=== PATIENT | male | born 1970 | race Caucasian/White ===

== ENCOUNTER 2020-01-08 01:04 | Outpatient (CLI) | payer BC, SELFPAY ==
[2020-01-08 16:42] LABS: SARS-CoV-2 RNA PCR Negative
== END 2020-01-08 01:05 | disposition home or self-care (01) ==
LOC: ANHCOVIDDT 01:05
PROVIDERS: PCP Family Medicine; Visit Provider Internal Medicine Gastroenterology
DX: Z01.812 Encounter for preprocedural laboratory examination (principal); Z20.828 Contact with and (suspected) exposure to other viral communicable diseases
CPT/HCPCS: 87635; C9803; U0003

== ENCOUNTER 2020-01-11 00:59 | Day surgery (SDC) | payer BC, SELFPAY ==
[2019-10-14 08:32] VITALS: BMI 33.5
[2020-01-05 09:58] VITALS: BMI 34.2
--- NOTE | 2020-01-11 00:05 | WPDANESEPP ---
Anes - Eval Pre Procedure Procedure: Operation Date: 01/11/20 07:30 Proposed Procedures p Screening Colonoscopy - Pawel Wood MD Date/Time: 01/11/20 00:05 Pre Op Diagnosis: Neoplasm screening Patient Data Age: 49 Gender: M Height: 5 ft 8 in Weight: 102 kg Allergies Allergy/AdvReac Type Severity Reaction Status Date / Time Penicillins Allergy Unknown childhood Verified 01/05/20 09:49 allergy Home Medications Medication Instructions Recorded Confirmed Type citalopram 20 mg tablet 20 mg PO HS 06/17/19 10/14/19 History sildenafil 100 mg tablet 100 mg PO DAILY PRN #30 tablet 08/02/19 10/14/19 Rx lisinopril-hydrochlorothiazide 1 tablet PO QAM 10/14/19 01/05/20 History atorvastatin 10 mg tablet 10 mg PO HS #90 tablet 10/26/19 01/05/20 Rx Patient hx anesthesia problems: none Family hx anesthesia problems: none PMFSH Past Medical History Medical History Benign essential hypertension Major depressive disorder, recurrent, moderate Male erectile disorder Mixed hyperlipidemia Obesity, unspecified Vitamin D deficiency, unspecified Family History Family History Mother Family history of malignant neoplasm of breast in first degree relative, Onset Age: 46 Social History Social History Smoking status: Never smoker Alcohol intake: current Exam Day of Procedure 01/11/20 00:05 Patient weight: overweight
[2020-01-11] MEDS: LACTATED RINGERS 1,000 ML 150 ML IV CONT (06:36)
[2020-01-11 06:41] VITALS: BP 133/89; PULSE 51; RESP 16; TEMP 36.3; O2SAT 99
--- NOTE | 2020-01-11 06:56 | P.PNAN_ITS ---
Anes - Eval Final PreProcedure Day of Procedure 01/11/20 06:56 Patient weight: obese Heart: regular rate and rhythm Lungs: clear to auscultation Airway: Mallampati scale class II Neurological: alert and oriented Last oral intake: >/= 8 hours ASA classification: II Emergent: no Anesthetic plan: proceed Anesthesia type and monitoring: general GIVS and standard monitoring Informed Consent: The patient's anesthetic plan and its attendant risks and be nefits were discussed with the patient/family/POA. Questions were solicited and answers provided to the satisfaction of the patient/family/POA.
--- NOTE | 2020-01-11 07:54 | P.CONGI_ITS ---
Assessment and Plan Assessment and plan (1) Encounter for screening for colorectal malignant neoplasm: Code(s): Z12.11 - Encounter for screening for malignant neoplasm of colon; Z12.12 - Encounter for screening for malignant neoplasm of rectum Status: Acute Assessment and Plan: Patient has never had a colonoscopy PD with 4 plan is for screening colonoscopy today. Further recommendations after endoscopy. GI Consult Note Consult date/time: 01/11/20 07:54 HPI: Frantz Blanca is a 49 year old male Seen in evaluation at the request of Dr. Mamadou Parkinson. patient presents for neoplasia screening colonoscopy. His current weight appetite bowel movements are normal. He denies abdominal pain. He has no blood in his stools. His family history is noncontributory. Review of Systems Review of Systems: All systems reviewed & are unremarkable except as noted in HPI and below PMFSH Past Medical History Medical History Benign essential hypertension Major depressive disorder, recurrent, moderate Male erectile disorder Mixed hyperlipidemia Obesity, unspecified Vitamin D deficiency, unspecified Family History Family History Mother Family history of malignant neoplasm of breast in first degree relative, Onset Age: 46 Social History Social History Smoking status: Never smoker Alcohol intake: current Meds Home Medications and Allergies Home Medications Medication Instructions Recorded Confirmed Type citalopram 20 mg tablet 20 mg PO HS 06/17/19 01/11/20 History sildenafil 100 mg tablet 100 mg PO DAILY PRN #30 tablet 08/02/19 10/14/19 Rx lisinopril-hydrochlorothiazide 1 tablet PO QAM 10/14/19 01/05/20 History atorvastatin 10 mg tablet 10 mg PO HS #90 tablet 10/26/19 01/05/20 Rx Allergies Allergy/AdvReac Type Severity Reaction Status Date / Time Penicillins Allergy Unknown childhood Verified 01/11/20 06:26 allergy Vital Signs Vital Signs - 24 hr 01/11/20 06:41 Temperature 36.3 C L Pulse Rate 51 L Respiratory Rate 16 Blood Pressure 133/89 Pulse Oximetry 99 Exam Narrative: Exam Narrative: Physical exam reveals patient to be alert. Vital signs stable. HEENT exam unremarkable. Lungs are clear to auscultation and percussion. Heart is without murmur or extra sounds. Abdominal exam bowel justin nds are present soft nontender with no hepatosplenomegaly. Digital external rectal exam unremarkable.
[2020-01-11 07:56] VITALS: BP 102/67; PULSE 63; RESP 16; O2SAT 97
[2020-01-11 08:06] VITALS: BP 101/66; PULSE 60; RESP 15; O2SAT 97
[2020-01-11 08:16] VITALS: BP 108/74; PULSE 63; RESP 17; O2SAT 99
== END 2020-01-11 08:45 | disposition home or self-care (01) ==
PROVIDERS: PCP Family Medicine; Visit Provider Internal Medicine Gastroenterology
PROC: 0DJD8ZZ Inspection of Lower Intestinal Tract, Via Natural or Artificial Opening Endoscopic (ICD-10-PCS; CPT 45378; principal; 2020-01-11 07:30)
DX: Z12.11 Encounter for screening for malignant neoplasm of colon (principal); D12.5 Benign neoplasm of sigmoid colon; K63.5 Polyp of colon; K57.30 Diverticulosis of large intestine without perforation or abscess without bleeding; K64.8 Other hemorrhoids; I10 Essential (primary) hypertension; E78.2 Mixed hyperlipidemia; E55.9 Vitamin D deficiency, unspecified; F33.1 Major depressive disorder, recurrent, moderate; E66.9 Obesity, unspecified; Z68.37 Body mass index [BMI] 37.0-37.9, adult
CPT/HCPCS: 45385; 88305; J2704; J7120

== ENCOUNTER 2020-08-07 15:12 | Emergency (ER) | payer BC, SELFPAY ==
--- NOTE | ~2020-08-07 | XR_ITS ---
EXAMINATION: XR chest 1V DATE: 08/07/2020 16:42 INDICATION: Shortness of breath and cough. COVID-19 positive on 07/27/20. TECHNIQUE: A single frontal view of the chest was obtained. COMPARISON: CT abdomen and pelvis 10/25/2015 FINDINGS: There are patchy airspace opacities in the mid and lower lung zones. No pleural effusion or pneumothorax. The heart size is normal. IMPRESSION: 1. Patchy airspace opacities in the mid and lower lung zones, consistent with COVID-19 pneumonia. Reviewed, dictated and finalized at location A. [facility] IMPRESSION: 1. Patchy airspace opacities in the mid and lower lung zones, consistent with C OVID-19 pneumonia.
[2020-08-07 16:26] VITALS: BP 124/73; PULSE 78; RESP 14; TEMP 36; O2SAT 97
--- NOTE | 2020-08-07 16:28 | ECG_ITS ---
Measurements Intervals [place] Rate: 76 P: 57 MO: 155 QRS: 39 QRSD: 92 T: 30 QT: 361 QTc: 408 Interpretive Statements SINUS RHYTHM INCOMPLETE RIGHT BUNDLE BRANCH BLOCK BORDERLINE ECG Electronically Signed On 08-07-2020 17:26:35 PATIENT CARE ASSISTANT by Leonard Dempsey D.O.
[2020-08-07 16:43] LABS: Basophils Percent Auto 0.1 % (0.2-1.2); Hematocrit 44.1 % (42.0-52.0); Hemoglobin 15.3 g/dL (14.0-18.0); Immature Granulocyte Absolute 0.05 K/mm3 (0.00-0.031); Immature Granulocyte Percent A 0.5 % (0-0.5); Lymphocytes Absolute Auto 1.35 K/mm3 (0.9-3.2); Lymphocytes Percent Auto 13.7 % (18.3-44.2); Mean Corpuscular HGB Conc 34.7 g/dl (32-36); Mean Corpuscular Hemoglobin 29.9 pg (26-34); Mean Corpuscular Volume 86.1 fl (80-100); Mean Platelet Volume 9.1 fl (7.4-10.4); Monocytes Absolute Auto 0.7 K/mm3 (0.1-0.6); Monocytes Percent Auto 6.7 % (2.6-8.5); Neutrophils Absolute Auto 7.8 K/mm3 (1.3-6.7); Platelet Count Result 224 k/mm3 (150-375); Red Blood Count 5.12 M/mm3 (4.6-6.20); Red Cell Distribution Width 11.8 % (11.5-14.5); White Blood Count 9.9 K/mm3 (4.5-10.0)
[2020-08-07 16:49] VITALS: PULSE 79
[2020-08-07 16:52] LABS: Anion Gap 8 mmol/L (8-16); Blood Urea Nitrogen 14 mg/dL (9-20); Calcium 8.5 mg/dL (8.4-10.2); Carbon Dioxide 26 mmol/L (22-30); Chloride 103 mmol/L (98-107); Estimated CRCL calculation 116 ml/min; Estimated Glomerular Filt Rate > 60; Glucose 146 mg/dL (75-110); Potassium 3.4 mmol/L (3.4-5.0); Sodium 137 mmol/L (137-145)
[2020-08-07 17:14] VITALS: PULSE 83; RESP 24; O2SAT 95
[2020-08-07 17:15] VITALS: PULSE 81; RESP 24; O2SAT 88
[2020-08-07 17:16] VITALS: BP 115/79; PULSE 82; RESP 15; O2SAT 97
--- NOTE | 2020-08-07 17:58 | ED.GENADULT ---
HPI - General Adult General Chief complaint: Shortness of Breath/Dyspnea Stated complaint: covid positive/low pulse ox Time Seen by Provider: 08/07/20 16:57 Source: patient Mode of arrival: ambulatory Limitations: no limitations History of Present Illness HPI narrative: Patient is a 50-year-old male who presents to emergency department for evaluation of shortness of breath patient has been experiencing COVID-19 symptoms with positive test since the beginning of the year patient notes that he was improving but today he had an episode of shortness of breath patient has been watching his oxygen at home which has gotten as low as 92 patient on arrival denying any pain feeling much better resting in the room Related Data Allergies Allergy/AdvReac Type Severity Reaction Status Date / Time Penicillins Allergy Unknown childhood Verified 08/07/20 16:48 allergy Review of Systems Review of Systems: All systems reviewed & are unremarkable except as noted in HPI and below PMFSH Past Medical History Medical History (Updated 08/07/20 @ 18:05 by Shin Cruz PA-C) Benign essential hypertension Major depressive disorder, recurrent, moderate Male erectile disorder Mixed hyperlipidemia Obesity, unspecified Vitamin D deficiency, unspecified Family History Family History Mother Family history of malignant neoplasm of breast in first degree relative, Onset Age: 46 Social History Social History Smoking status: Never smoker Alcohol intake: current Exam Narrative: Exam Narrative: GENERAL: Well-appearing, well-nourished, and in no acute distress. HEAD: Normocephalic, atraumatic. EYES: PERRLA and EOMI. ENT: Nares clear, no rhinorrhea or epistaxis. Mucous membranes moist. CHEST: Clear to auscultation. No respiratory distress. Slight crackles in the lung field HEART: Regular rate and rhythm. No murmur heard. Normal peripheral pulses. EXTREMITIES: Normal range of motion. No edema. SKIN: Warm, dry, no rash. NEURO: No focal deficits. Alert and oriented x3. PSYCH: Normal mood and affect. Course Course Emergency Course: Patient in the room with COVID-19 no hypoxemia does have COVID-19 pneumonia will be managed symptomatically as an outpatient given medications and advised to continue to watch his oxygenation ABCs and vital signs intact and stable Vital Signs Vital signs: Vital Signs Temperature 96.8 F L 08/07/20 16:26 Pulse Rate 78 08/07/20 16:26 Respiratory Rate 14 08/07/20 16:26 Blood Pressure 124/73 08/07/20 16:26 Pulse Oximetry 97 08/07/20 16:26 Temperature 96.8 F L 08/07/20 16:26 Pulse Rate 82 08/07/20 17:16 Respiratory Rate 15 08/07/20 17:16 Blood Pressure 115/79 08/07/20 17:16 Pulse Oximetry 97 08/07/20 17:16 Medical Decision Making MDM Narrative Medical decision making narrative: Patient with viral pneumonia secondary to COVID-19 hemodynamically stable no distress Vital Signs Vital Signs: Vital Signs Temperature 96.8 F L 08/07/20 16:26 Pulse Rate 78 08/07/20 16:26 Respiratory Rate 14 08/07/20 16:26 Blood Pressure 124/73 08/07/20 16:26 Pulse Oximetry 97 08/07/20 16:26 Temperature 96.8 F L 08/07/20 16:26 Pulse Rate 82 08/07/20 17:16 Respiratory Rate 15 08/07/20 17:16 Blood Pressure 115/79 08/07/20 17:16 Pulse Oximetry 97 08/07/20 17:16 Lab Data Result diagrams: 08/07/20 16:30 08/07/20 16:30 Labs: Lab Results 08/07/20 08/07/20 Range/Units 16:30 16:30 WBC 9.9 (4.5-10.0) K/mm3 RBC 5.12 (4.6-6.20) M/mm3 Hgb 15.3 (14.0-18.0) g/dL Hct 44.1 (42.0-52.0) % MCV 86.1 (80-100) fl MCH 29.9 (26-34) pg MCHC 34.7 (32-36) g/dl RDW 11.8 (11.5-14.5) % Plt Count 224 (150-375) k/mm3 MPV 9.1 (7.4-10.4) fl Immature Gran % (Auto) 0.5 (0-0.5) % Neut %
[2020-08-07] MEDS: DEXAMETHASONE SOD PHOS INJ 4 MG/ML VIAL 6 MG IV PUSH (18:13)
[2020-08-07 18:24] VITALS: BP 116/85; PULSE 79; RESP 20; O2SAT 97
== END 2020-08-07 18:25 | disposition home or self-care (01) ==
PROVIDERS: Emergency Provider Emergency Medicine; PCP Family Medicine
DX: U07.1 COVID-19 (principal); J12.82 Pneumonia due to coronavirus disease 2019; I10 Essential (primary) hypertension; E78.2 Mixed hyperlipidemia; E55.9 Vitamin D deficiency, unspecified; E66.9 Obesity, unspecified; Z68.36 Body mass index [BMI] 36.0-36.9, adult
CPT/HCPCS: 36415; 71045; 80048; 85025; 93005; 96374; 99284; J1100

== ENCOUNTER 2021-02-01 15:50 | Outpatient (CLI) | payer BC, SELFPAY ==
--- NOTE | ~2021-02-01 | XR_ITS ---
EXAMINATION: XR chest 2V DATE: 02/01/2021 16:05 INDICATION: Shortness of breath. TECHNIQUE: Frontal and lateral views of the chest were obtained. COMPARISON: Chest single view 08/07/2020, CT abdomen and pelvis 10/25/2015 FINDINGS: The lung volumes are small. There is no pneumonia, pleural effusion, or pneumothorax. The h eart size is normal. IMPRESSION: 1. No acute cardiopulmonary disease. Reviewed, dictated and finalized at location A.
== END 2021-02-01 15:51 | disposition home or self-care (01) ==
LOC: ANHIMG 15:54
PROVIDERS: PCP Family Medicine; Visit Provider Physician Assistant
DX: R06.02 Shortness of breath (principal)
CPT/HCPCS: 71046

== ENCOUNTER → 2021-04-12 00:15 | Outpatient (CLI) | payer BC, SELFPAY ==
[2021-04-12 19:52] LABS: SARS-CoV-2 RNA PCR Negative
== END ==
PROVIDERS: PCP Family Medicine; Visit Provider Physician Assistant Medical
DX: Z20.822 Contact with and (suspected) exposure to COVID-19 (principal); J02.9 Acute pharyngitis, unspecified; R09.81 Nasal congestion; R09.89 Other specified symptoms and signs involving the circulatory and respiratory systems
CPT/HCPCS: C9803; U0003; U0005

== ENCOUNTER 2022-04-11 18:56 | Emergency (ER) | payer BC, SELFPAY ==
[2022-04-11 19:26] VITALS: BP 121/83; PULSE 94; RESP 18; TEMP 36.8; O2SAT 96
--- NOTE | 2022-04-11 21:57 | PC.NURSE ---
LWBS TRIAGED, LEFT D/T WAIT TIME
== END 2022-04-11 21:57 | disposition left against medical advice (07) ==
PROVIDERS: PCP Family Medicine
DX: M54.50 Low back pain, unspecified (principal)
CPT/HCPCS: 99199

== ENCOUNTER → 2022-04-12 11:35 | Outpatient (CLI) | payer BC, SELFPAY ==
--- NOTE | ~2022-04-12 | CT_ITS ---
EXAMINATION: CT abdomen pelvis wo con DATE: 04/12/2022 11:57 INDICATION: Acute abdominal pain TECHNIQUE: Computed tomography (CT) of the abdomen and pelvis was performed without intravenous contr ast. The dose-length product (DLP) was 1199.36 mGy-cm. Automated exposure control and iterative recon struction technique were employed. COMPARISON: 10/25/2015 FINDINGS: The lung bases are clear. The heart size is normal. Calcified coronary artery atheroscleros is is noted. The liver, spleen, pancreas, gallbladder, and adrenal glands are normal. There is a 7 mm stone in the proximal left ureter causing moderate hydronephrosis. There are at least three nonobstr ucting stones of the right kidney which measure up to 10 mm. No pathologically enlarged abdominal or pelvic lymph nodes are identified. There is no free intraperitoneal gas or evidence of bowel obstruct ion. Colonic diverticulosis is present without evidence of diverticulitis. The appendix is normal. Th ere is mild lumbar spondylosis. IMPRESSION: 1. 7 mm stone in the proximal left ureter causing moderate hydronephrosis. 2. Nonobstructing right nephrolithiasis. Reviewed, dictated and finalized at location B.
== END ==
PROVIDERS: PCP Family Medicine; Visit Provider Family Medicine
DX: R10.9 Unspecified abdominal pain (principal); N20.2 Calculus of kidney with calculus of ureter
CPT/HCPCS: 74176

== ENCOUNTER 2022-06-07 16:43 | Emergency (ER) | payer BC, SELFPAY ==
--- NOTE | ~2022-06-07 | CT_ITS ---
EXAMINATION: CT abdomen pelvis wo con DATE: 06/07/2022 20:01 INDICATION: Hematuria. TECHNIQUE: Computed tomography (CT) of the abdomen and pelvis was performed without intravenous contr ast. Automated exposure control and iterative reconstruction technique were employed. The dose-length product was 528.19 mGy-cm. COMPARISON: CT abdomen and pelvis 04/12/2022 FINDINGS: The visualized portions of the lung bases demonstrate minimal atelectasis. No pleural effus ion. The heart size is normal. There are coronary artery calcifications. No pericardial effusion. The liver, gallbladder, spleen, pancreas, and adrenal glands are normal. There are 3 stones in right kid theresa measuring up to 11 mm. There is a 2 mm stone in left kidney. There is a 7 mm stone in the bladder . There is diverticulosis of the colon without evidence of diverticulitis. There are no dilated loops of bowel. The appendix is normal. There are no pathologically enlarged lymph nodes. There is no free intraperitoneal fluid. There is mild thoracolumbar spondylosis. IMPRESSION: 1. 7 mm bladder stone. Note that this stone was in the left ureter on the prior CT. 2. Bilateral nonobstructing kidney stones. Reviewed, dictated and finalized at location A. [employer]
[2022-06-07 16:48] VITALS: BP 154/92; PULSE 64; RESP 16; TEMP 36.4; O2SAT 100
[2022-06-07 17:10] LABS: Appearance Urine Cloudy (Clear); Bilirubin Urine Negative (Negative); Blood Urine 3+ (Negative); Color Urine Yellow (Yellow); Glucose Urine UA Negative (Negative); Ketones Urine Trace mg/dL (Negative); Leukocyte Esterase Ur Negative LEU/UL (Negative); Nitrate Urine Negative (Negative); Protein Urine Negative (Negative); Urobilinogen Urine 0.2 mg/dL (<2.0); pH Urine 5.5 (5.0-9.0)
[2022-06-07 17:16] LABS: Bacteria Urine Trace /hpf; Mucus Urine Rare /lpf; RBC Urine >75 /hpf (0-2)
[2022-06-07 17:17] LABS: Add Urine Microscopic? YES
--- NOTE | 2022-06-07 19:56 | ED.GENADULT ---
HPI - General Adult General Chief complaint: Urogenital-Male Stated complaint: difficulty urinating Time Seen by Provider: 06/07/22 19:46 History of Present Illness HPI narrative: 52-year-old male presenting to the emergency department for evaluation of decreased urine production and pain with urination. Patient states over the last 2 days he has had decreased urine production. Patient does report anterior urinary pain. Patient denies any associated flank pain. Related Data Home Medications Medication Instructions Recorded Confirmed cholecalciferol (vitamin D3) 50 50 mcg PO DAILY 04/23/21 mcg (2,000 unit) tablet Allergies Allergy/AdvReac Type Severity Reaction Status Date / Time Penicillins Allergy Unknown childhood Verified 04/19/22 11:19 allergy Review of Systems Review of Systems: CONSTITUTIONAL: Denies fever, chills, or sweats. EYES: Denies visual changes, redness, or discharge. ENT: Denies rhinorrhea, congestion, sore throat, or otalgia. CARDIOVASCULAR: Denies chest pain, palpitations, or edema. RESPIRATORY: Denies cough or dyspnea. GASTROINTESTINAL: Denies abdominal pain, nausea, vomiting, or diarrhea. GENITOURINARY: See HPI SKIN: Denies rash or itching. MUSCULOSKELETAL: Denies back pain, joint pain, or myalgia. NEUROLOGIC: Denies headache, numbness, or weakness. [facility] Past Medical History Medical History (Updated 06/07/22 @ 22:34 by Agusto Turcios MD) Benign essential hypertension Major depressive disorder, recurrent, moderate Male erectile disorder Mixed hyperlipidemia Obesity, unspecified Vitamin D deficiency, unspecified Family History Family History Mother Family history of malignant neoplasm of breast in first degree relative, Onset Age: 46 Social History Social History Smoking status: Never smoker Alcohol intake: current Exam Narrative: APPEARANCE: Well appearing, no pain, no distress, well-nourished. HEAD: normocephalic, atraumatic. EYES: PERRLA/EOMI, conjunctivae clear. NOSE: Normal no drainage NECK: Supple. No adenopathy, no masses. RESPIRATORY: Airway patent, respirations nonlabored. Clear to auscultation bilaterally, no rales, rhonchi, wheezing. CARDIOVASCULAR: Regular rate and rhythm without murmurs rubs or gallops. ABDOMINAL: Soft, nontender, nondistended, normal bowel sounds MUSCULOSKELETAL: Moves all extremities. Strength/ROM intact, No edema, No calf tenderness. NEURO: Alert. Cranial nerves II through XII intact. Grossly intact SKIN: Warm, dry. Normal Color Course Course Emergency Course: Case was discussed with Dr. Barfield who is on-call for the patient's urologist. Dr. Barfield was comfortable with the plan for placing a Dc catheter and having follow up with his urologist on Friday. Patient was initially expecting admission for stone removal. After initial discussion with urology it was decided to attempt the Dc catheter and outpatient follow-up. Patient was ultimately comfortable with this plan. Dr. Barfield called back and stated that there is any difficulty placing the Dc catheter and the patient still had a discomfort that she would be okay admitting. Dc catheter was placed without issue and patient's pain was improved. Patient was discharged to home per the initial plan. Vital Signs Vital signs: Vital Signs Temperature 97.5 F L 06/07/22 16:48 Pulse Rate 64 06/07/22 16:48 Respiratory Rate 16 06/07/22 16:48 Blood Pressure 154/92 H 06/07/22 16:48 Pulse Oximetry 100 06/07/22 16:48 Oxygen Delivery Room Air 06/07/22 16:48 Temperature 97.5 F L 06/07/22 16:48 Pulse Rate 52 L 06/07/22 20:08 Respiratory Rate 18 06/07/22 20:08 Blood Pressure 155/99 H 06/07/22 20:08 Pulse Oximetry 98 06/07/22 20:08 Oxygen Delivery Room Air 06/07/22 16:48 Medical Decision Making Vital Signs Vital
[2022-06-07 20:08] VITALS: BP 155/99; PULSE 52; RESP 18; O2SAT 98
[2022-06-07] MEDS: SODIUM CHLORIDE 0.9% IV 1,000 ML 999 ML IV CONT (20:10)
[2022-06-07 20:51] LABS: Basophils Percent Auto 0.4 % (0.2-1.2); Eosinophils Absolute Auto 0.1 K/mm3 (0-0.3); Eosinophils Percent Auto 0.7 % (0-4.4); Hematocrit 39.3 % (42.0-52.0); Hemoglobin 13.3 g/dL (14.0-18.0); Immature Granulocyte Absolute 0.02 K/mm3 (0.00-0.031); Immature Granulocyte Percent A 0.3 % (0-0.5); Lymphocytes Absolute Auto 3.02 K/mm3 (0.9-3.2); Lymphocytes Percent Auto 39.6 % (18.3-44.2); Mean Corpuscular HGB Conc 33.8 g/dl (32-36); Mean Corpuscular Hemoglobin 30.1 pg (26-34); Mean Corpuscular Volume 88.9 fl (80-100); Mean Platelet Volume 8.9 fl (7.4-10.4); Monocytes Absolute Auto 0.6 K/mm3 (0.1-0.6); Monocytes Percent Auto 8.4 % (2.6-8.5); Neutrophils Absolute Auto 3.9 K/mm3 (1.3-6.7); Neutrophils Percent Auto 50.6 % (45.5-73.1); Platelet Count Result 209 k/mm3 (150-375); Red Blood Count 4.42 M/mm3 (4.6-6.20); Red Cell Distribution Width 11.8 % (11.5-14.5); White Blood Count 7.6 K/mm3 (4.5-10.0)
[2022-06-07] MEDS: HYDROmorphone HCL INJ (*CRX) 1 MG/ML SYR IV PUSH (20:57)
[2022-06-07 21:05] LABS: Alanine Aminotransferase 34 U/L (6-50); Albumin Level 4.2 g/dL (3.5-5.1); Alkaline Phosphatase 86 U/L (38-126); Anion Gap 8 mmol/L (8-16); Aspartate Amino Transferase 32 U/L (17-59); Bilirubin,Total 0.6 mg/dL (0.2-1.3); Blood Urea Nitrogen 12 mg/dL (9-20); Calcium 8.3 mg/dL (8.4-10.2); Carbon Dioxide 23 mmol/L (22-30); Chloride 107 mmol/L (98-107); Estimated CRCL calculation 109 ml/min; Estimated Glomerular Filt Rate > 60; Glucose 81 mg/dL (65-110); Potassium 3.5 mmol/L (3.4-5.0); Sodium 138 mmol/L (137-145)
[2022-06-07] MEDS: LIDOCAINE HCL 2% GEL UROJET 10 ML PKG MUCOUS MEM (23:05)
== END 2022-06-07 23:07 | disposition home or self-care (01) ==
PROVIDERS: Preventive Medicine Aerospace Medicine; Emergency Provider Emergency Medicine; PCP Family Medicine
DX: N21.0 Calculus in bladder (principal); R33.9 Retention of urine, unspecified; I10 Essential (primary) hypertension; E78.2 Mixed hyperlipidemia; E55.9 Vitamin D deficiency, unspecified; E66.9 Obesity, unspecified; Z68.35 Body mass index [BMI] 35.0-35.9, adult; N20.0 Calculus of kidney
CPT/HCPCS: 36415; 74176; 80053; 81001; 85025; 87086; 96361; 96374; 99284; J1170; J7030

== ENCOUNTER 2022-06-11 08:31 | Day surgery (SDC) | payer BC, SELFPAY ==
[2022-06-11] VITALS (8 sets, daily range): BP systolic 95–139; BP diastolic 58–94; PULSE 62–83; RESP 14–20; TEMP 36.3–36.7; O2SAT 92–98
--- NOTE | 2022-06-11 09:02 | ECG_ITS ---
Measurements Intervals [place] Rate: 62 P: 27 [place]: 157 QRS: 8 QRSD: 95 T: 14 QT: 399 QTc: 406 Interpretive Statements SINUS RHYTHM NORMAL ECG COMPARED TO ECG 08/07/2020 16:33:49 NO SIGNIFICANT CHANGES Electronically Signed On 06-11-2022 9:59:15 STOCK CAR DRIVER by Leonard Dempsey D.O.
[2022-06-11 09:38] LABS: Glucose Point of Care 103 mg/dl (65-105)
--- NOTE | 2022-06-11 10:33 | WPDANESEPPF ---
Anes - Initial Pre Proc Eval Procedure: Operation Date: 06/11/22 13:30 Proposed Procedures p Cystolitholapaxy, Bladder Stone Removal - Karl Alamo MD Date/Time: 06/11/22 10:33 Surgeon: Karl Alamo MD Pre Op Diagnosis: bladder stone Patient Data Age: 52 Gender: M Height: 1.73 m Weight: 106 kg Last Vital Signs Temp 36.3 C L 06/11/22 08:47 Pulse 67 06/11/22 08:47 Resp 16 06/11/22 08:47 BP 139/94 H 06/11/22 08:47 Pulse Ox 97 06/11/22 08:47 O2 Del Method Room Air 06/11/22 08:47 Allergies Allergy/AdvReac Type Severity Reaction Status Date / Time Penicillins Allergy Unknown childhood Verified 06/11/22 09:11 allergy Home Medications Medication Instructions Recorded Confirmed Type albuterol sulfate 90 mcg/actuation See Rx Instructions .Route 11/03/20 02/01/21 Rx aerosol inhaler .COMPLEX ##6.7 sildenafil 100 mg tablet See Rx Instructions .Route 10/29/21 Rx .COMPLEX #30 tabs lisinopril 20 mg tablet See Rx Instructions .Route 12/04/21 Rx .COMPLEX #90 tabs citalopram 20 mg tablet See Rx Instructions .Route 12/31/21 Rx .COMPLEX #90 tabs atorvastatin 10 mg tablet See Rx Instructions .Route 03/28/22 Rx .COMPLEX #90 tabs tamsulosin 0.4 mg capsule 0.4 mg PO DAILY #30 caps 05/28/22 Rx hydrocodone 5 mg-acetaminophen 325 1 tablet PO Q8H PRN pain #10 tabs 06/07/22 Rx mg tablet semaglutide 0.25 mg or 0.5 mg (2 0.5 mg subcut WEEKLY 06/11/22 06/11/22 History mg/1.5 mL) subcutaneous pen injector (Ozempic) Laboratory Tests 06/11/22 09:28 POC Capillary Glucose 103 mg/dl mg/dl (65-105) Patient hx anesthesia problems: none Family hx anesthesia problems: none Results Review: All pre-operative results and documents have been reviewed as part of the pre-operative evaluation. [facility] Past Medical History Medical History (Updated 06/08/22 @ 00:00 by Background Daemon) Benign essential hypertension Major depressive disorder, recurrent, moderate Male erectile disorder Mixed hyperlipidemia Obesity, unspecified Vitamin D deficiency, unspecified Family History Family History Mother Family history of malignant neoplasm of breast in first degree relative, Onset Age: 46 Social History Social History Smoking status: Never smoker Alcohol intake: current Alcohol use details: 2 PER MONTH Substance use: never Substance use type: does not use Living arrangements: with family Anes - Evartemio Final PreProcedure Day of Procedure 06/11/22 10:33 Patient weight: obese Heart: regular rate and rhythm Lungs: clear to auscultation Airway: Mallampati scale class II Neurological: alert and oriented Last oral intake: 6 hours (at 1230 it will have been 6 hours since patient had coffee with splash of 1% milk) ASA classification: III Emergent: no Anesthetic plan: proceed Anesthesia type and monitoring: general ETT and standard monitoring Results Review: All pre-operative results and documents have been reviewed as part of the pre-operative evaluation. Informed Consent: The patient's anesthetic plan and its attendant risks and benefits were discussed with the patient/family/POA. Questions were solicited and answers provided to the satisfaction of the patient/family/POA.
--- NOTE | 2022-06-11 12:56 | PM.HPGS ---
History of Present Illness History of Present Illness Consent: Risks, benefits, and alternatives have been discussed and questions answered. Patient agrees to proceed with procedure. Chief complaint: bladder stone Narrative: Frantz Blanca is a 52 year old male with episodes of urolithiasis in the past.? In March [address] scan that showed a 7 mm stone in his left ureter.? That has now passed into his bladder but he is unable to pass it per urethra.? He has had an indwelling catheter in since an ER visit 4 days ago.? After discussion he elects for cystoscopy with bladder stone extraction, possible laser lithotripsy.? He is aware the risks including, not limited to, postoperative hematuria and infection. Review of Systems Cardiovascular: Cardiovascular: Denies chest pain, Denies lightheadedness, Denies palpitations and Denies dyspnea Respiratory: Respiratory: Denies dyspnea Gastrointestinal: Gastrointestinal: Denies diarrhea, Denies nausea and Denies vomiting Genitourinary: Genitourinary: Denies hematuria and Denies dysuria Endocrine: Endocrine: Denies palpitations PMF Past Medical History Medical History (Updated 06/11/22 @ 12:57 by Karl Alamo MD) Benign essential hypertension Major depressive disorder, recurrent, moderate Male erectile disorder Mixed hyperlipidemia Obesity, unspecified Vitamin D deficiency, unspecified Family History Family History Mother Family history of malignant neoplasm of breast in first degree relative, Onset Age: 46 Social History Social History Smoking status: Never smoker Alcohol intake: current Alcohol use details: 2 PER MONTH Substance use: never Substance use type: does not use Living arrangements: with family Meds Home Medications and Allergies Home Medications Medication Instructions Recorded Confirmed Type albuterol sulfate 90 mcg/actuation See Rx Instructions .Route 11/03/20 02/01/21 Rx aerosol inhaler .COMPLEX ##6.7 sildenafil 100 mg tablet See Rx Instructions .Route 10/29/21 Rx .COMPLEX #30 tabs citalopram 20 mg tablet See Rx Instructions .Route 12/31/21 Rx .COMPLEX #90 tabs atorvastatin 10 mg tablet See Rx Instructions .Route 03/28/22 Rx .COMPLEX #90 tabs tamsulosin 0.4 mg capsule 0.4 mg PO DAILY #30 caps 05/28/22 Rx hydrocodone 5 mg-acetaminophen 325 1 tablet PO Q8H PRN pain #10 tabs 06/07/22 Rx mg tablet lisinopril 20 mg tablet 20 mg PO DAILY #90 tabs 06/11/22 Rx semaglutide 0.25 mg or 0.5 mg (2 0.5 mg subcut WEEKLY 06/11/22 06/11/22 History mg/1.5 mL) subcutaneous pen injector (Ozempic) Allergies Allergy/AdvReac Type Severity Reaction Status Date / Time Penicillins Allergy Unknown childhood Verified 06/11/22 09:11 allergy Vital Signs Vital Signs - 24 hr 06/11/22 08:47 Temperature 97.4 F L Pulse Rate 67 Respiratory Rate 16 Blood Pressure 139/94 H Pulse Oximetry 97 Oxygen Delivery Room Air Exam Const: General: no acute distress Resp: Effort & Inspection: normal respiratory effort GI: Inspection: non-distended GI Palp: No abdominal tenderness and No Guarding due to palpation present (GI) Auscultation: normal bowel sounds Assessment and Plan Assessment and plan (1) Bladder stone: Code(s): N21.0 - Calculus in bladder Status: Acute Assessment and Plan: Cystoscopy, bladder stone extraction with possible later lithotripsy.
--- NOTE | 2022-06-11 12:57 | WPDHPUPDATE1 ---
History and Physical Update Update Date/Time: 06/11/22 12:57 History and Physical has been reviewed, including an updated exam of the patient. There are NO changes in the patient's condition. Risks, benefits, and alternatives have been discussed and questions answered. Patient agrees to proceed with procedure.
[2022-06-11] MEDS: ceFAZolin 2 GM/D5W 50 ML 2 GM/50 ML BAG IVPB (13:01)
--- NOTE | 2022-06-11 13:21 | P.OP_ITS ---
Procedure Note - Detailed Date of Procedure 06/11/22 Pre-op Diagnosis Bladder stone Post-op Diagnosis Same Procedure Performed Cystoscopy, bladder stone extraction Surgeon Karl Alamo MD Anesthesia General Description of Procedure The patient was brought to the operative suite where he was prepped and draped in a routine sterile fashion while in the dorsal lithotomy position. A 24F resectescope was placed in her bladder and the bladder was circumferentially inspected. There were no urethral strictures. The prostatic urethral estimated length was 1.5cm. There was mild obstruction of the prostatic urethra with no median lobe. The bladder mucosa was without hyperemia. There was a single, 7- 8mm jagged stone in the dependent portion of the bladder. There was a single orthotopic ureteral orifice bilaterally. The stone was removed intact with loop electrode. The scope was removed after emptying the patient's bladder. Drains No Packing Yes Pathology Yes Complications No immediate complications Condition Stable Disposition PACU
[2022-06-11] MEDS: LACTATED RINGERS 1,000 ML 30 ML IV CONT (13:29)
[2022-06-11 13:56] LABS: Glucose Point of Care 105 mg/dl (65-105)
[2022-06-11] MEDS: oxyCODONE HCL (*CRX) 5 MG TAB IR PO (14:51)
== END 2022-06-11 15:15 | disposition home or self-care (01) ==
PROVIDERS: PCP Family Medicine; Visit Provider Urology
PROC: 0TCB8ZZ Extirpation of Matter from Bladder, Via Natural or Artificial Opening Endoscopic (ICD-10-PCS; CPT 52352; principal; 2022-06-11 13:30)
DX: N21.0 Calculus in bladder (principal); E78.2 Mixed hyperlipidemia; I10 Essential (primary) hypertension; E55.9 Vitamin D deficiency, unspecified; F33.1 Major depressive disorder, recurrent, moderate; E66.9 Obesity, unspecified; Z68.35 Body mass index [BMI] 35.0-35.9, adult; Z79.51 Long term (current) use of inhaled steroids; Z79.899 Other long term (current) drug therapy
CPT/HCPCS: 52310; 82365; 82948; 88300; 93005; A9270; J0690; J1100; J1200; J2250; J2405; J2704; J3010; J7120

== ENCOUNTER 2024-10-25 13:47 | Outpatient (CLI) | payer BC, SELFPAY ==
--- NOTE | ~2024-10-25 | CT_ITS ---
EXAMINATION: CT abdomen pelvis wo con DATE: 10/25/2024 13:59 INDICATION: Calcium kidney stones. TECHNIQUE: Computed tomography (CT) of the abdomen and pelvis was performed without intravenous contr ast. Automated exposure control and iterative reconstruction technique were employed. The dose-length product was 815.71 mGy-cm. COMPARISON: 06/07/2022 FINDINGS: Lung bases are clear. Heart size is normal. Atherosclerotic coronary artery calcification. No pericar dial or pleural effusion. Liver, gallbladder, spleen, pancreas, bilateral adrenal glands are normal. Bilateral nonobstructing nephrolithiasis with 4 stones in the right kidney measuring up to 1.1 cm and a couple stones measuring up to 2 mm at lower pole calyces of the left kidney. No ureteral stones or hydronephrosis. There is moderate colonic diverticulosis with a sigmoid and descending colon predomi nance without adjacent inflammatory change to suggest diverticulitis. Small bowel and appendix are no rmal. Bladder is normal. Small bilateral fat-containing inguinal hernias. No free intraperitoneal gas or fluid. No pathologically enlarged abdominal or pelvic lymphadenopathy. Mild lumbar and lower thor acic spondylosis. IMPRESSION: 1. Bilateral nonobstructing nephrolithiasis. Reviewed, dictated and finalized at location B.
== END 2024-10-25 13:48 | disposition home or self-care (01) ==
LOC: MICIMG 13:47
PROVIDERS: PCP Nurse Practitioner Family; Visit Provider Urology
DX: N20.0 Calculus of kidney (principal)
CPT/HCPCS: 74176

== ENCOUNTER 2024-11-18 09:44 | Outpatient (CLI) | payer BC, SELFPAY ==
[2024-12-08 12:51] VITALS: BMI 35.2
--- NOTE | 2024-12-08 12:51 | WPDHOMESLEEP ---
Sleep Study - Home Unattended Date of Study: 11/18/24 Ordering Provider: NAVEED Rojas-Ami Interpreting Provider: Esther Austin, DO Home Sleep Study Type: Watch PAT Height: 1.7 m Weight: 102.058 kg Body Mass Index: 35.2 Neck Circumference (inches): 16.5 [facility] [place]: 10 Reason for Sleep Study Daytime hypersomnia Sleep History The patient is a 54-year-old male that a sleep study ordered by his primary care for evaluation of sleep. The patient admits to snoring loudly, excessive daytime sleepiness, trouble falling asleep and trouble maintaining sleep. He denies interruptions in breathing while asleep. He denies choking or gasping at night. He denies having trouble breathing on his back. He denies morning headaches. He denies having a dry or sore mouth /throat in the morning. He denies nocturnal heartburn. He urinates twice throughout the night. He does have difficulty returning to sleep if he wakes up throughout the night. He does use hypnotics or sedatives. He denies feeling anxious about sleep. He does feel tired or sleepy during the day. He does feel tired in the morning. He denies having the urge to fall asleep during the day. He denies feeling drowsy while driving. He denies sleep paralysis, cataplexy and hypnagogic/ hypnopompic hallucinations. He denies clenching or grinding his teeth. He denies kicking or jerking his legs excessively. He denies having a restless feeling in his legs. He goes to bed at 10:00 p.m. every night. It takes him 1 hour to fall asleep. He gets 5 hours and 30 minutes of sleep on work days and 7 hours on his days off. His sleep is a little more restorative on his days off. He does take planned naps in the afternoon that are 1-2 hours long. Did naps are restorative. The patient denies dream enactment behavior. He denies sleep walking. He consumes 3-4 caffeinated beverages per day. He denies tobacco use. He consumes 1 alcoholic beverage 1-2 nights per week. He denies exercises on a regular basis. FOR[facility]LY [facility] Past Medical History Medical History (Updated 12/08/24 @ 12:56 by Esther Austin DO) Benign essential hypertension Major depressive disorder, recurrent, moderate Male erectile disorder Mixed hyperlipidemia Obesity, unspecified Vitamin D deficiency, unspecified Family History Family History Mother Family history of malignant neoplasm of breast in first degree relative, Onset Age: 46 Social History Social History Social History: caffeine Smoking status: Never smoker Alcohol intake: current Drinks per week: 3 Substance use: current Substance use type: marijuana Last use: gummies once or twice a month Do You Feel Safe in your Home?: Yes Lack of Transportation: No Lack of Food: Never True Current Housing: I Have Housing Concerned About Future Housing: No Difficulty Paying Gas/Electric Bills: No Difficulty Paying for Meds: No Currently Unemployed: No Education: Bachelor's Degree Difficulty w/ Childcare or Family Care: No Living arrangements: with family Medications Home Medications ?Medication ?Instructions ?Recorded ?Confirmed ?Type atorvastatin 10 mg tablet See Rx Instructions .Route 08/19/23 10/25/24 Rx .COMPLEX #90 tabs tadalafil 5 mg tablet 5 mg PO DAILY PRN sexual activity 10/01/24 10/25/24 Rx #30 tabs tamsulosin 0.4 mg capsule 0.4 mg PO DAILY #30 caps 10/05/24 10/25/24 Rx lisinopril 20 mg tablet 20 mg PO DAILY #90 tabs 10/22/24 10/25/24 Rx citalopram 20 mg tablet 30 mg (1.5 x 20 mg) PO QHS #135 10/25/24 10/25/24 Rx tabs zolpidem 5 mg tablet (Ambien) 5 mg PO QHS PRN sleep #30 tabs 10/25/24 10/25/24 Rx phentermine 37.5 mg capsule 37.5 mg PO DAILY #30 caps 11/22/24 Rx Sleep Procedure The sleep study was completed using [employer] a technically adequate device with seven channels: peripheral arterial tone, actigraphy, body position, snore, respiratory movement, pulse oximetry, sleep staging, and heart rate. Prior to using the device, the patient received verbal and written instructions for its application and was provided with the help desk phone number for additional telephonic instruction with 24-hour availability of qualified personnel to answer questions. The study was scored using AASM and CMS guidelines. Sleep Architecture The total recording time is 9 hrs, 1 min. The total sleep time is 6 hrs, 39 min. Sleep latency is 49 minutes. REM latency is 205 minutes. The patient had 18 episodes of waking. Sleep architecture shows 9.4% deep sleep, 70.4% light sleep, and (as % Total Sleep Time) showed NREM (Light 70.4%; Deep 9.4%), and a 20.3% stage REM. The patient spent 12.6% of total sleep time in the supine position. Sleep efficiency was 73.75. Respiratory Analysis The overall AHI (pAHI 4%:) is 4.1. The overall AHI (pAHI 3%:) is 8.1. The central AHI is 0.8. The AHI was 8.8 in NREM and 5.3 in REM sleep. The AHI was 22.0 in Supine and 6.1 in Non-supine sleep. Percent of Bobby Peres respirations is 0.0. Oximetry Data The oxygen desaturation index (THANIA 4%:) is 4.4. The mean saturation is 94%, and the lowest saturation is 87%. Time spent with saturation < 88% is 0.0 minutes. Snoring Profile Snoring average intensity is 42 dB. The patient snored above 45 decibels for 57.0 minutes, 14.3% of sleep time. Cardiac Profile The average pulse rate is 77 beats per minutes. The lowest pulse rate is 49 bpm. The highest pulse rate reported is 105 bpm. Atrial fibrillation was not detected. Premature beats occur 0.4 per minute. Assessment and Plan Assessment and Plan (1) GURDEEP (obstructive sleep apnea): Code(s): G47.33 - Obstructive sleep apnea (adult) (pediatric) Status: Acute Assessment and Plan: The patient had an overall AHI of 8.1 (using 3% criteria) and 4.1 (using 4% criteria). If the patient's insurance company recognizes AASM guidelines for sleep study scoring, the patient meets criteria for mild sleep apnea. The patient qualifies for treatment due to his hypertension. I recommend that the patient be prescribed AutoPAP 5-15 cm H2O, CPAP mask/filters/tubing and heated humidity. A mandibular advancement device is also an acceptable treatment option. This should be used with all episodes of sleep.? Compliance should be reviewed within 31-90 days of starting therapy for usage greater than 4 hours per night greater than 70% of the nights. The patient should be asked about symptoms such as?excessive daytime sleepiness, quality of sleep, decreased nocturia, increased?mental functioning such as memory, mood, and concentration. If the patient's insurance company only recognizes CMS guidelines using the 4% criteria for AHI, the patient does not meet criteria for sleep apnea and would need a split study for further evaluation. Data The data obtained during this sleep study is adequate for interpretation. Certification This sleep study has been reviewed by a board certified sleep medicine physician.
== END 2024-11-19 09:42 | disposition home or self-care (01) ==
LOC: ANHCSM 09:45
PROVIDERS: PCP Nurse Practitioner Family; Visit Provider Nurse Practitioner Family
DX: G47.33 Obstructive sleep apnea (adult) (pediatric) (principal); I10 Essential (primary) hypertension; F39 Unspecified mood [affective] disorder
CPT/HCPCS: 95800

== ENCOUNTER 2024-11-18 10:28 | Outpatient (CLI) | payer BC, SELFPAY ==
--- NOTE | ~2024-11-18 | XR_ITS ---
Supine and upright views of the abdomen Clinical history: Renal stone COMPARISON: 03/22/2008 Findings: Bowel gas pattern is nonspecific. No evidence for obstruction or free air. 7 mm right renal stone present. Osseous structures are intact. Impression: 7 mm right renal stone. Reviewed, dictated and finalized at [facility]. Impression: 7 mm right renal stone.
== END 2024-11-18 10:29 | disposition home or self-care (01) ==
LOC: MICIMG 10:31
PROVIDERS: PCP Nurse Practitioner Family; Visit Provider Urology
DX: N20.0 Calculus of kidney (principal)
CPT/HCPCS: 74018

== ENCOUNTER 2025-02-08 10:35 | Outpatient (CLI) | payer BC, SELFPAY ==
--- NOTE | 2025-02-08 10:50 | ECG_ITS ---
Test Date: 2025-02-08 11:03:04 Measurements Intervals [place] Rate: 63 P: 54 AR: 143 QRS: 7 QRSD: 97 T: 32 QT: 411 QTc: 423 Interpretive Statements SINUS RHYTHM NORMAL ELECTROCARDIOGRAM No previous ECG available for comparison Electronically Signed On 02-08-2025 13:22:33 CDT by Rj Jones M.D.
[2025-02-08 11:34] LABS: INR 1.0; Prothrombin Time 13.0 Seconds (11.1-14.7)
[2025-02-08 11:35] LABS: Partial Thromboplastin Time 27.9 Seconds (22.3-36.8)
== END 2025-02-08 10:36 | disposition home or self-care (01) ==
LOC: ANHSURGERY 10:37
PROVIDERS: PCP Nurse Practitioner Family; Visit Provider Urology
DX: Z01.818 Encounter for other preprocedural examination (principal); N20.0 Calculus of kidney; E78.2 Mixed hyperlipidemia
CPT/HCPCS: 36415; 85610; 85730; 87086; 93005

== ENCOUNTER 2025-02-11 00:10 | Day surgery (SDC) | payer BC, SELFPAY ==
[2025-02-08 10:17] VITALS: BMI 34.2
--- NOTE | 2025-02-08 10:25 | SUR.PREOP ---
Report to the Outpatient Waiting Room, entrance under the green pavilion located off [facility], at time 10:00a.m on date 02/11/2025. Planned Procedure Time: 12:00p.m.? Time changes happen often and if your time is changed the preop area will call you the afternoon before. - You and your visitor will be asked to self-screen and do not enter if you have any COVID symptoms. Please call surgeon if you need to reschedule. - A mask is optional within the hospital at this time. Patients may have clear liquids (water, carbonated beverages, clear teas, apple juice) until 3 hours prior to surgery with a maximum of 20 ounces. - No food from midnight until time of surgery and no smoking, or chewing tobacco (or any form of nicotine). No chewing gum, candy or mints. - Infants may have breast milk until 4 hours before surgery, infant formula 6 hours prior to surgery. - Children will be allowed to drink immediately following surgery.? If applicable, please bring a bottle or sippy cup to assist with drinking. Juice, water, soda, and popsicles are readily available.? For infants on formula, please bring formula the day of surgery.? Pacifiers are allowed. Take only the following medications with a SIP of water on the morning of surgery: citalopram DO NOT STOP ANY OF YOUR OTHER PRESCRIPTION MEDICATIONS PRIOR TO SURGERY EXCEPT THE FOLLOWING Hold all vitamins and supplements for 3 days per anesthesiologist. Medications to discontinue per physician NONE Date to take last dose N/A Please no make-up, nail mosotho, hairspray, perfume, deodorant, or body powder the day of surgery.? No jewelry (including any body piercings) or valuables the day of surgery, leave them at home.? Please take a shower or bath the night before, or the morning of, surgery with an antibacterial soap.? Wear comfortable, loose fitting clothing.? Children are encouraged to wear pajamas. - Jewelry must be removed prior to entering the operating room.? Rings and piercings that are not removed may be cut off. - The hospital will not accept responsibility for valuables.? - Please leave all valuables, including medications, at home the day of surgery. If you are going home after surgery, a licensed transportation driver must drive you home.? - NO public transportation without another adult if you receive anesthesia. - We recommend that an adult stay with you for 24 hours following discharge. - We also recommend that you do not drive, make important decision, drink alcoholic beverages, or take any drugs that were not prescribed by your health care provider for at least 24 hours after your discharge time. For Pediatric surgeries, we recommend two adults accompany the child home. Follow any additional instructions given to you from your surgeon. Telephone instructions given to Milton Blanca and asked if any additional questions and then verbalized understanding. Patient advised to call surgeon office or pre surgery nurse liaison [phone] if any additional questions.
--- NOTE | 2025-02-10 13:45 | P.HP_ITS ---
History of Present Illness History of Present Illness Consent: Risks, benefits, and alternatives have been discussed and questions answered. Patient agrees to proceed with procedure. Chief complaint: Rt Kidney Stone Narrative: Frantz Blanca is a 54 year old male who recently transferred care to our practice were providing management for prostatism, hypogonadism and history of urolithiasis. Recent imaging demonstrated couple small stones in his left kidney but several stones in his right kidney bearing in size up to 11 mm. After discussion of options he elects for ESWL. He is aware the risks including, but not needed to, residual stones, need for additional procedures, hematuria and perinephric hematoma Review of Systems Review of Systems: All systems reviewed & are unremarkable except as noted in HPI and below PMFSH Past Medical History Medical History (Updated 02/10/25 @ 13:46 by Karl Alamo MD) Benign essential hypertension Major depressive disorder, recurrent, moderate Male erectile disorder Mixed hyperlipidemia Obesity, unspecified Vitamin D deficiency, unspecified Family History Family History Mother Family history of malignant neoplasm of breast in first degree relative, Onset Age: 46 Social History Social History Social History: caffeine Smoking status: Never smoker Alcohol intake: current Drinks per week: 2 Substance use: current Substance use type: marijuana Last use: gummies once or twice a month Do You Feel Safe in your Home?: Yes Lack of Transportation: No Lack of Food: Never True Current Housing: I Have Housing Concerned About Future Housing: No Difficulty Paying Gas/Electric Bills: No Difficulty Paying for Meds: No Currently Unemployed: No Education: Bachelor's Degree Difficulty w/ Childcare or Family Care: No Living arrangements: with family Spiritual care concerns: No Meds Home Medications and Allergies Home Medications ?Medication ?Instructions ?Recorded ?Confirmed ?Type atorvastatin 10 mg tablet See Rx Instructions .Route 08/19/23 02/08/25 Rx .COMPLEX #90 tabs tadalafil 5 mg tablet 5 mg PO DAILY PRN sexual activity 10/01/24 02/08/25 Rx #30 tabs tamsulosin 0.4 mg capsule 0.4 mg PO DAILY #30 caps 10/05/24 02/08/25 Rx lisinopril 20 mg tablet 20 mg PO DAILY #90 tabs 10/22/24 02/08/25 Rx citalopram 20 mg tablet 30 mg (1.5 x 20 mg) PO QHS #135 10/25/24 02/08/25 Rx tabs ResMed AutoPAP #1 ea 12/08/24 Rx phentermine 37.5 mg capsule 37.5 mg PO DAILY #30 caps 01/24/25 02/08/25 Rx zolpidem 5 mg tablet (Ambien) 5 mg PO QHS PRN sleep #30 tabs 02/07/25 02/08/25 Rx tirzepatide (weight loss) 5 mg/0.5 5 mg (0.5 mL) subcut WEEKLY #2 mL 02/09/25 Rx mL subcutaneous solution (Zepbound) Allergies Allergy/AdvReac Type Severity Reaction Status Date / Time Penicillins Allergy Unknown childhood Verified 02/08/25 10:14 allergy Exam Const: General: no acute distress Resp: Effort & Inspection: normal respiratory effort GI: Inspection: non-distended GI Palp: No abdominal tenderness and No Guarding due to palpation present (GI) Auscultation: normal bowel sounds Assessment and Plan Assessment and plan (1) Bilateral kidney stones: Code(s): N20.0 - Calculus of kidney Status: Acute Assessment and Plan: * Right ESWL
[2025-02-11] VITALS (7 sets, daily range): BP systolic 106–134; BP diastolic 71–97; PULSE 60–71; RESP 11–21; TEMP 36.5–36.8; O2SAT 96–98
--- NOTE | ~2025-02-11 | XR_ITS ---
XR abdomen/kub 1V Ordering provider: Karl Alamo MD History: . ESWL . Comparison: None. FINDINGS: BOWEL: Nonobstructive bowel gas pattern. ORGANOMEGALY: None. SIGNIFICANT PATHOLOGIC CALCIFICATIONS: Right kidney stone measuring 8 mm. OTHER: No free air is seen under the diaphragm. Bilateral hip osteoarthritic changes. IMPRESSION: NO ACUTE ABDOMINAL FINDINGS. Right kidney stone. Reviewed, dictated and finalized at location A.
--- NOTE | 2025-02-11 06:05 | WPDHPUPDATE1 ---
History and Physical Update Update Date/Time: 02/11/25 06:05 History and Physical has been reviewed, including an updated exam of the patient. There are NO changes in the patient's condition. Risks, benefits, and alternatives have been discussed and questions answered. Patient agrees to proceed with procedure.
[2025-02-11] MEDS: LACTATED RINGERS 1,000 ML 30 ML IV CONT (09:50)
--- NOTE | 2025-02-11 11:32 | WPDANESEPPF ---
Anes - Initial Pre Proc Eval Procedure: Operation Date: 02/11/25 12:00 Proposed Procedures p Right Extracorporeal Shock Wave Lithotripsy - Karl Alamo MD Date/Time: 02/11/25 11:32 Surgeon: Karl Alamo MD Pre Op Diagnosis: Rt Kidney Stone Patient Data Age: 54 Gender: M Height: 1.73 m Weight: 104 kg Last Vital Signs Temp 97.7 F 02/11/25 09:16 Pulse 65 02/11/25 09:16 Resp 20 02/11/25 09:16 BP 131/86 02/11/25 09:16 Pulse Ox 98 02/11/25 09:16 O2 Del Method Room Air 02/11/25 09:16 Allergies Allergy/AdvReac Type Severity Reaction Status Date / Time Penicillins Allergy Unknown childhood Verified 02/08/25 10:14 allergy Home Medications ?Medication ?Instructions ?Recorded ?Confirmed ?Type atorvastatin 10 mg tablet See Rx Instructions .Route 08/19/23 02/11/25 Rx .COMPLEX #90 tabs tadalafil 5 mg tablet 5 mg PO DAILY PRN sexual activity 10/01/24 02/08/25 Rx #30 tabs tamsulosin 0.4 mg capsule 0.4 mg PO DAILY #30 caps 10/05/24 02/11/25 Rx lisinopril 20 mg tablet 20 mg PO DAILY #90 tabs 10/22/24 02/11/25 Rx citalopram 20 mg tablet 30 mg (1.5 x 20 mg) PO QHS #135 10/25/24 02/11/25 Rx tabs ResMed AutoPAP #1 ea 12/08/24 Rx phentermine 37.5 mg capsule 37.5 mg PO DAILY #30 caps 01/24/25 02/11/25 Rx zolpidem 5 mg tablet (Ambien) 5 mg PO QHS PRN sleep #30 tabs 02/07/25 02/08/25 Rx tirzepatide (weight loss) 5 mg/0.5 5 mg (0.5 mL) subcut WEEKLY #2 mL 02/09/25 02/11/25 Rx mL subcutaneous solution (Zepbound) Patient hx anesthesia problems: none Family hx anesthesia problems: none Results Review: All pre-operative results and documents have been reviewed as part of the pre-operative evaluation. COUNTS INCLUDE 234 BEDS AT THE [facility] Past Medical History Medical History Benign essential hypertension Major depressive disorder, recurrent, moderate Male erectile disorder Mixed hyperlipidemia Obesity, unspecified Vitamin D deficiency, unspecified Family History Family History Mother Family history of malignant neoplasm of breast in first degree relative, Onset Age: 46 Social History Social History Social History: caffeine Smoking status: Never smoker Alcohol intake: current Drinks per week: 2 Substance use: current Substance use type: marijuana Last use: gummies once or twice a month Do You Feel Safe in your Home?: Yes Lack of Transportation: No Lack of Food: Never True Current Housing: I Have Housing Concerned About Future Housing: No Difficulty Paying Gas/Electric Bills: No Difficulty Paying for Meds: No Currently Unemployed: No Education: Bachelor's Degree Difficulty w/ Childcare or Family Care: No Living arrangements: with family Spiritual care concerns: No Anes - Eval Final PreProcedure Day of Procedure 02/11/25 11:32 Patient weight: obese Lungs: normal air movement Airway: Mallampati scale class II Neurological: alert and oriented Last oral intake: >/= 8 hours ASA classification: III Emergent: no Anesthetic plan: proceed Anesthesia type and monitoring: general LMA and standard monitoring Results Review: All pre-operative results and documents have been reviewed as part of the pre-operative evaluation. HTN, hyperlipidemia, GURDEEP but noncompliant w CPAP. Occ smoker. Informed Consent: The patient's anesthetic plan and its attendant risks and benefits were discussed with the patient/family/POA. Questions were solicited and answers provided to the satisfaction of the patient/family/POA.
[2025-02-11] MEDS: ceFAZolin 2 GM in SODIUM CHLORIDE 0.9% IV 50 ML 100 ML IVPB (11:45)
--- NOTE | 2025-02-11 12:03 | W.PM.PROC2 ---
Procedure Note - Detailed Date of Procedure 02/11/25 Pre-op Diagnosis Bilateral renal stones Post-op Diagnosis Same Procedure Performed Right ESWL Surgeon Karl Alamo MD Anesthesia General Description of Procedure The patient was brought to the operative suite where he was placed in the supine position on the Dornier lithotripsy table. The focal point of the lithotripter was placed on the 2 dominant stones in his right kidney, both in the lower pole. A total of 2500 shocks were delivered at a power setting of 4. There appeared to be good fragmentation of the stone. The patient tolerated the procedure well and was taken to the recovery room in good condition.
[2025-02-11] MEDS: oxyCODONE HCL (*CRX) 5 MG TAB IR PO (13:28)
== END 2025-02-11 13:55 | disposition home or self-care (01) ==
PROVIDERS: PCP Nurse Practitioner Family; Visit Provider Urology
PROC: (CPT 50590; principal; 2025-02-11 12:00)
DX: N20.0 Calculus of kidney (principal); F12.90 Cannabis use, unspecified, uncomplicated; E66.9 Obesity, unspecified; Z68.34 Body mass index [BMI] 34.0-34.9, adult
CPT/HCPCS: 50590; 74018; J0690; A9270; J1100; J2003; J2250; J2405; J2704; J3010; J7120

== ENCOUNTER 2025-03-08 02:14 | Day surgery (SDC) | payer BC, SELFPAY ==
[2025-02-21 10:43] VITALS: BMI 34.2
--- NOTE | 2025-03-08 06:53 | P.PNAN_ITS ---
Anes - Initial Pre Proc Eval Procedure: Operation Date: 03/08/25 08:45 Proposed Procedures p Screening Colonoscopy - Joe Silver MD Date/Time: 03/08/25 06:53 Surgeon: Joe Silver MD Pre Op Diagnosis: Neoplasm screening Patient Data Age: 54 Gender: M Height: 1.73 m Weight: 102.27 kg Allergies Allergy/AdvReac Type Severity Reaction Status Date / Time Penicillins Allergy Unknown childhood Verified 03/08/25 07:20 allergy Home Medications ?Medication ?Instructions ?Recorded ?Confirmed ?Type atorvastatin 10 mg tablet See Rx Instructions .Route 08/19/23 03/08/25 Rx .COMPLEX #90 tabs tadalafil 5 mg tablet 5 mg PO DAILY PRN sexual activity 10/01/24 02/21/25 Rx #30 tabs tamsulosin 0.4 mg capsule 0.4 mg PO DAILY #30 caps 10/05/24 03/08/25 Rx lisinopril 20 mg tablet 20 mg PO DAILY #90 tabs 10/22/24 03/08/25 Rx citalopram 20 mg tablet 30 mg (1.5 x 20 mg) PO QHS #135 10/25/24 03/08/25 Rx tabs [facility]Med AutoPAP #1 ea 12/08/24 Rx zolpidem 5 mg tablet (Ambien) 5 mg PO QHS PRN sleep #30 tabs 02/07/25 03/08/25 Rx hydrocodone 5 mg-acetaminophen 325 1 - 2 tablet PO Q6H PRN pain #20 02/11/25 02/21/25 Rx mg tablet tabs tirzepatide (weight loss) 7.5 7.5 mg (0.5 mL) subcut WEEKLY #2 mL 02/28/25 03/08/25 Rx mg/0.5 mL subcutaneous solution (Zepbound) Patient hx anesthesia problems: none Family hx anesthesia problems: none Results Review: All pre-operative results and documents have been reviewed as part of the pre- operative evaluation. [facility] Past Medical History Medical History (Updated 03/07/25 @ 14:42 by Darvin Beatty DO) GURDEEP (obstructive sleep apnea) Benign essential hypertension Major depressive disorder, recurrent, moderate Male erectile disorder Mixed hyperlipidemia Obesity, unspecified Vitamin D deficiency, unspecified Family History Family History Mother Family history of malignant neoplasm of breast in first degree relative, Onset Age: 46 Social History Social History Social History: caffeine Smoking status: Never smoker Alcohol intake: current Drinks per week: 2 Substance use: current Substance use type: marijuana Last use: gummies once or twice a month Do You Feel Safe in your Home?: Yes Lack of Transportation: No Lack of Food: Never True Current Housing: I Have Housing Concerned About Future Housing: No Difficulty Paying Gas/Electric Bills: No Difficulty Paying for Meds: No Currently Unemployed: No Education: Bachelor's Degree Difficulty w/ Childcare or Family Care: No Living arrangements: with family Spiritual care concerns: No Anes - Eval Final PreProcedure Day of Procedure 03/08/25 06:53 Patient weight: obese Heart: regular rate and rhythm Lungs: clear to auscultation Airway: Mallampati scale class II Neurological: alert and oriented Last oral intake: >/= 8 hours ASA classification: III Emergent: no Anesthetic plan: proceed Anesthesia type and monitoring: general GIVS and standard monitoring Results Review: All pre-operative results and documents have been reviewed as part of the pre- operative evaluation. Informed Consent: The patient's anesthetic plan and its attendant risks and benefits were d iscussed with the patient/family/POA. Questions were solicited and answers provided to the satisfaction of the patient/family/POA.
[2025-03-08 07:15] VITALS: BP 122/89; PULSE 82; RESP 16; TEMP 36.8; O2SAT 97; BMI 33.5
[2025-03-08] MEDS: LACTATED RINGERS 1,000 ML 150 ML IV CONT (07:29)
--- NOTE | 2025-03-08 08:43 | PM.IMHP ---
H&P: HPI History of Present Illness Date/Time: 03/08/25 08:43 Chief Complaint: History of colon polyps Narrative: The patient has a history of colonic polyps, the last colonoscopy was 5 years ago. Review of Systems Review of Systems: All systems reviewed & are unremarkable except as noted in HPI and below [facility] Past Medical History Medical History (Updated 03/08/25 @ 08:44 by Joe Silver MD) GURDEEP (obstructive sleep apnea) Benign essential hypertension Major depressive disorder, recurrent, moderate Male erectile disorder Mixed hyperlipidemia Obesity, unspecified Vitamin D deficiency, unspecified Family History Family History Mother Family history of malignant neoplasm of breast in first degree relative, Onset Age: 46 Social History Social History Social History: caffeine Smoking status: Never smoker Alcohol intake: current Drinks per week: 2 Substance use: current Substance use type: marijuana Last use: gummies once or twice a month Do You Feel Safe in your Home?: Yes Lack of Transportation: No Lack of Food: Never True Current Housing: I Have Housing Concerned About Future Housing: No Difficulty Paying Gas/Electric Bills: No Difficulty Paying for Meds: No Currently Unemployed: No Education: Bachelor's Degree Difficulty w/ Childcare or Family Care: No Living arrangements: with family Spiritual care concerns: No Meds Home Medications and Allergies Home Medications ?Medication ?Instructions ?Recorded ?Confirmed ?Type atorvastatin 10 mg tablet See Rx Instructions .Route 08/19/23 03/08/25 Rx .COMPLEX #90 tabs tadalafil 5 mg tablet 5 mg PO DAILY PRN sexual activity 10/01/24 02/21/25 Rx #30 tabs tamsulosin 0.4 mg capsule 0.4 mg PO DAILY #30 caps 10/05/24 03/08/25 Rx lisinopril 20 mg tablet 20 mg PO DAILY #90 tabs 10/22/24 03/08/25 Rx citalopram 20 mg tablet 30 mg (1.5 x 20 mg) PO QHS #135 10/25/24 03/08/25 Rx tabs ResMed AutoPAP #1 ea 12/08/24 Rx zolpidem 5 mg tablet (Ambien) 5 mg PO QHS PRN sleep #30 tabs 02/07/25 03/08/25 Rx hydrocodone 5 mg-acetaminophen 325 1 - 2 tablet PO Q6H PRN pain #20 02/11/25 02/21/25 Rx mg tablet tabs tirzepatide (weight loss) 7.5 7.5 mg (0.5 mL) subcut WEEKLY #2 mL 02/28/25 03/08/25 Rx mg/0.5 mL subcutaneous solution (Zepbound) Allergies Allergy/AdvReac Type Severity Reaction Status Date / Time Penicillins Allergy Unknown childhood Verified 03/08/25 07:20 allergy Vital Signs Vital Signs - 24 hr 03/08/25 07:15 Temperature 98.2 F Pulse Rate 82 Respiratory Rate 16 Blood Pressure 122/89 Pulse Oximetry 97 Oxygen Delivery Room Air Exam Const: General: cooperative and healthy appearing Resp: Effort & Inspection: normal respiratory effort and able to speak in complete sentences Auscultation: clear to auscultation bilaterally Cardio: Rate: regular rate Rhythm: regular rhythm GI: Inspection: normal to inspection GI Palp: No No hepatosplenomegaly present Auscultation: normal bowel sounds Rectal Exam: deferred Skin: General skin exam: normal color Psych: Appearance: grossly normal Mental Status: mental status grossly normal Assessment and Plan Assessment and plan (1) History of colonic polyps: Code(s): Z86.0100 - Personal history of colon polyps, unspecified Status: Acute Assessment and Plan: The patient is deemed a good candidate for the procedure. Consent signed. Will proceed.
[2025-03-08 09:08] VITALS: BP 102/76; PULSE 75; RESP 15; O2SAT 96
[2025-03-08 09:18] VITALS: BP 114/77; PULSE 76; RESP 17; O2SAT 96
[2025-03-08 09:28] VITALS: BP 122/81; PULSE 64; RESP 20; O2SAT 100
== END 2025-03-08 09:34 | disposition home or self-care (01) ==
PROVIDERS: PCP Nurse Practitioner Family; Referring Provider Nurse Practitioner Family; Visit Provider Internal Medicine Gastroenterology
PROC: 0DJD8ZZ Inspection of Lower Intestinal Tract, Via Natural or Artificial Opening Endoscopic (ICD-10-PCS; CPT 45378; principal; 2025-03-08 08:45)
DX: Z12.11 Encounter for screening for malignant neoplasm of colon (principal); K57.30 Diverticulosis of large intestine without perforation or abscess without bleeding; I10 Essential (primary) hypertension; E78.2 Mixed hyperlipidemia; E55.9 Vitamin D deficiency, unspecified; N52.9 Male erectile dysfunction, unspecified; G47.33 Obstructive sleep apnea (adult) (pediatric); F33.1 Major depressive disorder, recurrent, moderate; F12.90 Cannabis use, unspecified, uncomplicated; E66.9 Obesity, unspecified; Z68.33 Body mass index [BMI] 33.0-33.9, adult; Z79.891 Long term (current) use of opiate analgesic; Z79.85 Long-term (current) use of injectable non-insulin antidiabetic drugs; Z86.0100 Personal history of colon polyps, unspecified; Z80.3 Family history of malignant neoplasm of breast
CPT/HCPCS: 45378; J2704; J7120

== ENCOUNTER 2025-04-15 12:36 | Outpatient (CLI) | payer BC, SELFPAY ==
--- NOTE | ~2025-04-15 | XR_ITS ---
XR abdomen/kub 1V 04/15/2025 12:50 INDICATION: Renal stone TECHNIQUE: KUB COMPARISON: 08/14/2024 FINDINGS: Bowel gas pattern is normal. There is no evidence of free air, mass, organomegaly, ascites or obstruction. No abnormal calculi are seen. The bones appear intact. IMPRESSION: 1: No acute abdominal abnormality identified. Reviewed, dictated and finalized at location O.
== END 2025-04-15 12:37 | disposition home or self-care (01) ==
PROVIDERS: PCP Nurse Practitioner Family; Visit Provider Urology
DX: N20.0 Calculus of kidney (principal)
CPT/HCPCS: 74018